=== PATIENT | male | born 1970 | race Two or more races ===

== ENCOUNTER 2019-05-27 14:39 | Emergency (ER) | payer SELFPAY ==
--- NOTE | 2019-05-27 15:36 | EDM.PDOC ---
ED HPI GENERAL MEDICAL PROBLEM - General Chief Complaint: Upper Extremity Injury/Pain Stated Complaint: SHOULDER PAIN Time Seen by Provider: 05/27/19 15:18 Source of Information: Reports: Patient, RN Notes Reviewed - History of Present Illness INITIAL COMMENTS - FREE TEXT/NARRATIVE: 49-year-old male comes in with right neck shoulder and arm discomfort ordered after lifting injury about 9 days ago. Has had 2 visits to local occupational health clinic. Been placed on a muscle relaxant but he states "that is not working. states the pain is getting worse. He also has developed some paresthesias of the right forearm radiating to the index and middle fingers. Right Shoulder Pain Score (Numeric/FACES): 10 - Related Data Allergies Allergy/AdvReac Type Severity Reaction Status Date / Time No Known Allergies Allergy Verified 05/27/19 15:01 Home Meds: Home Meds Acetaminophen/HYDROcodone [[place] 325-5 MG] 1 tab PO Q6H PRN #10 tablet 05/27/19 [Rx] predniSONE [Prednisone] 50 mg PO DAILY #7 tablet 05/27/19 [Rx] Past Medical History - Past Health History Medical/Surgical History: Denies Medical/Surgical History Social & Family History - Tobacco Use Smoking Status *Q: Former Smoker Used Tobacco, but Quit: Yes Month/Year Tobacco Last Used: 2013 - Caffeine Use Caffeine Use: Reports: None - Recreational Drug Use Recreational Drug Use: No Review of Systems - Review of Systems Review Of Systems: See Below Constitutional: Denies: Chills, Fever Mouth/Throat: Denies: No Symptoms Respiratory: Denies: Shortness of Breath Cardiovascular: Denies: Chest Pain, Palpitations GI/Abdominal: Denies: Abdominal Pain, Nausea, Vomiting Musculoskeletal: Reports: Neck Pain, Shoulder Pain, Arm Pain Skin: Reports: No Symptoms Neurological: Reports: Numbness, Tingling ED EXAM, GENERAL - Physical Exam Exam: See Below General Appearance: Alert, Moderate Distress Eye Exam: Bilateral Eye: PERRL Head: Atraumatic. No: Facial Swelling Neck: Supple, Other (Is tenderness right base, no spasm swelling, warmth or erythema) Respiratory/Chest: No Respiratory Distress, Lungs Clear Cardiovascular: Regular Rate, Rhythm Extremities: Normal Inspection, Normal Range of Motion, Other (Shoulder is nontender, no swelling warmth or erythema, arm wrist hand nontender) Neurological: Other (Mildly decreased sensation to touch distal index and middle fingers) Skin Exam: Warm (, no focal weakness), Dry, Normal Color Course - Vital Signs Last Recorded V/S: Last Vital Signs Temp 98.0 F 05/27/19 14:58 Pulse 69 05/27/19 14:58 Resp 20 05/27/19 14:58 BP 156/95 H 05/27/19 14:58 Pulse Ox 99 05/27/19 14:58 - Re-Assessments/Exams Free Text/Narrative Re-Assessment/Exam: 05/27/19 18:22 Patient does have a cervical radiculopathy, discharge instructions as documented. Departure - Departure Time of Disposition: 15:33 Disposition: Home, Self-Care 01 Condition: Fair Clinical Impression: Cervical radiculopathy - Discharge Information Prescriptions: Acetaminophen/HYDROcodone [[place] 325-5 MG] 1 tab PO Q6H PRN #10 tablet PRN Reason: Pain predniSONE [Prednisone] 50 mg PO DAILY #7 tablet Instructions: Cervical Radiculopathy, [id number] Referrals: PCP,None [Primary Care Provider] - Forms: ED Department Discharge Additional Instructions: rest arm and shoulder, continue with no heavy lifting, alternate ice and heat as needed, prednisone 50 mg daily starting this afternoon and than once q am until gone, tylenol or ibuprofen for mild to moderate pain or hydrocodone if needed for severe pain, do not take hydrocodone when working, do not drive when taking hydrocodone. Prescriptions for the prednisone and hydrocodone have been sent to [facility]. They close at 4 PM today so you do need to go there imediately to get those filled. Follow up with [facility] in about 3 to 4 days for recheck. The expectation is that most injuries of this nature will heal and get much better over the next 1 to 2 weeks. Sepsis Event Note - Evaluation Sepsis Screening Result: No Definite Risk - Focused Exam Vital Signs: Vital Signs Temp Pulse Resp BP Pulse Ox 05/27/19 14:58 98.0 F 69 20 156/95 H 99 Date Exam was Performed: 05/27/19 Time Exam was Performed: 18:19
== END 2019-05-27 15:42 | disposition home or self-care (01) ==
LOC: JD.ED 14:39
CPT/HCPCS: 99283